=== PATIENT | male | born 1950 ===

== ENCOUNTER 2017-04-03 07:14 | Day surgery (SDC) | payer MEDICARE ==
[2017-03-24 10:24] VITALS: BMI 27.8
[2017-04-03] MEDS ORDERED: Lactated Ringer's 1,000 ML IV ONE (09:30)
[2017-04-03] MEDS ORDERED: Midazolam 2 MG/2 ML VIAL ONE (09:31)
[2017-04-03] MEDS ORDERED: Propofol 10 mg/ml Inj (20 ML) ONE (09:31)
[2017-04-03] MEDS ORDERED: cefTRIAXone IV 1 gm in Dextros 50 ML IVPB ONE (09:37)
[2017-04-03] MEDS ORDERED: Gentamicin 160 MG in Sodium Chloride 0.9% 100 ML IVPB ONE (09:45)
[2017-04-03] MEDS ORDERED: HYDROmorphone 0.5 mg/0.5 ml ISec IVP PRN (10:29)
[2017-04-03] MEDS ORDERED: Dexamethasone 4 mg/1 ml IVP PRN (10:29)
[2017-04-03] MEDS ORDERED: Lactated Ringer's 1,000 ML IV SCH (10:30)
[2017-04-03 12:28] VITALS: BP 114/66; PULSE 69; RESP 20; TEMP 97.7; O2SAT 99
--- NOTE | 2017-04-03 15:03 | OP ---
PROCEDURE DATE: 04/03/2017 PREOPERATIVE DIAGNOSIS: Elevated prostate specific antigen of 9.36. POSTOPERATIVE DIAGNOSIS: Elevated prostate specific antigen of 9.36. PROCEDURE: Transrectal ultrasound diagnostic, transrectal ultrasound guidance, and transrectal prost ate biopsy. SURGEON: Ambrose Nogueira MD. DESCRIPTION OF PROCEDURE: The patient assured me prior to induction of anesthesia that he has not ta lance any NSAIDs or aspirin for over a week. He was instructed to take it easy for a few days and in t he rare event of chills or fever, to call me immediately or go to the nearest Emergency Room. The patient is brought to the operating room, prepped and draped in the usual fashion in lithotomy po sition and premedicated with 1 gram of Rocephin and 160 mg gentamicin IV piggyback. The rectum was c leansed with Betadine. The transducer was inserted into the rectum and a total volume of 67 cm was n oted. Small areas of calcification were noted diffusely. We now turned our attention towards the pr ostatic biopsies. The prostate was divided into 6 sextants and 2 biopsies per sextant were submitted . At the termination of the procedure, the transducer was maintained for moderate pressure to promot e hemostasis for 4 minutes and then removed. The patient tolerated the procedure well. No significa nt blood loss was noted. Ambrose Nogueira MD cc: 66 TT: 04/03/2017 15:02:33 tn
== END 2017-04-03 12:15 | disposition home or self-care (01) ==
LOC: C.SDS 07:14
PROVIDERS: ATTEND Urology
DX: C61 Malignant neoplasm of prostate (principal); R97.20 Elevated prostate specific antigen [PSA]
CPT/HCPCS: 55700; 88305; 88342; J0696; J1580; J7120